=== PATIENT | female | born 1985 | race Caucasian/White ===

== ENCOUNTER 2016-12-21 10:58 | Inpatient (IN) | payer OTHER ==
--- NOTE | ~2016-12-21 | PN ---
Unit #: [id number] #: [id number] Patient: GLEN NICE [id number] [facility] [address] [place] [address] [id number] MR#: [id number] NAME: GLEN NICE ROOM: P173 Age: 31 Sex: F Admission Date: 12/21/2016 : 1985 Attending Physician: Branden Carver M.D. Admitting Physician: Branden Carver M.D. Primary Care Physician: Primary Care Physician Coral [facility] PROGRESS NOTES DATE OF SERVICE 12/23/2016 DISCUSSION Ms. Glen Nice is a 31-year-old female seen on 12/23/2016. The patient compliant, cooperative. Mood sad, dysphoric, withdrawn, isolative, guarded. The patient reported that she is still having withdrawal symptom, anxiety, nervousness, anxious, tremors, nausea, vomiting, mood lability. Complete Review of Systems: Unremarkable. MENTAL STATUS EXAMINATION General Appearance: The patient dressed casually. Oriented in time, place, and person. Mood and affect: Sad, dysphoric. Speech: Monotone. Thought process: Cascade. The patient denied any thoughts of harming self or others but guarded, withdrawn, isolative. Recent and remote memory: Poor. Insight and judgment: Poor. DIAGNOSIS Opioid use disorder, severe. ASSESSMENT/PLAN Advised to continue with current medication and therapeutic protocol. We will monitor response to medication and make further adjustment of medication. Dictated by... Cindy Canela/sterling TD: 12/24/2016 12:10 JOB #: [id number] Unit #: [id number] #: [id number] Patient: GLEN NICE [facility] PROGRESS NOTES X Branden Carvre MD PROGRESS NOTE
--- NOTE | ~2016-12-21 | PA ---
Unit #: [id number] #: [id number] Patient: GLEN NICE [id number] [place] [address] [id number] MR#: [id number] NAME: GLEN NICE ROOM: P177 Age: 31 Sex: F Admission Date: 12/21/2016 : 1985 Date of Assessment: Attending Physician: Branden Carver M.D. Admitting Physician: Branden Carver M.D. Primary Care Physician: Primary Care Physician No PSYCHIATRIC ASSESSMENT INFORMANTS The patient's reliability, fair; chart reliability, good. CHIEF COMPLAINT Suicidal ideation. HISTORY OF PRESENT ILLNESS Ms. Glen Nice is a 31-year-old female, seen on . The patient was admitted with the above-mentioned complaint. The patient has a history of previous treatment inpatient on 11/27/2016, inpatient for suicide attempt. The patient referred from [facility] due to the patient overdosed on medication in an attempt to . The patient reported mother 2 years ago and she is still grieving the loss of her mother. The patient believes that no one loves her, feeling of hopelessness and worthlessness. She broke up with her boyfriend recently. The patient lost 2 children about 18 months ago due to her addiction to opioids. The patient currently in [facility]. The patient tried to commit suicide 3 weeks ago by cutting her wrist. The patient placed in inpatient facility recently. The patient reported feeling hopeless, worthless, sad, and depressed. Needing inpatient admission at this time for psychiatric stabilization. PAST PSYCHIATRIC HISTORY Remarkable for history of inpatient treatment as mentioned above on 11/27/2016. FAMILY HISTORY/SOCIAL HISTORY The patient has a poor support system from family. Family psychiatric illness is remarkable for history of substance abuse in mother and father. No known history of any abuse. MEDICAL HISTORY Remarkable for history of hepatitis C. Musculoskeletal; muscle strength and tone, no atrophy or abnormal movement. Gait normal. MEDICATION HISTORY None. ALLERGIES No known drug allergies. SUBSTANCE ABUSE HISTORY The patient reported alcohol use, age of onset 18; marijuana, age of onset Unit #: [id number] #: [id number] Patient: GLEN NICE 20; opioid, age of onset 26; amphetamine, age of onset 29. The patient reported history of IV drug use. No history of any blackout, but history of hepatitis C. Currently reporting depressed mood, poor appetite, sleep problem, diarrhea, muscle cramp, abdominal cramping, hot and cold sweats. REVIEW OF SYSTEMS HEENT: Eyes, clear. Ears, nose, mouth, and throat; clear. CARDIOVASCULAR: Unremarkable. RESPIRATORY: Unremarkable. GI: Unremarkable. : Unremarkable. SKIN: Unremarkable. LYMPH NODE: Unremarkable. NEUROLOGIC: Unremarkable. ENDOCRINE: Unremarkable. HEMATOLOGIC: Unremarkable. ALLERGIC/IMMUNOLOGIC: Unremarkable. MUSCULOSKELETAL: Muscle strength and tone, no atrophy or abnormal movement. Gait normal except as mentioned above. MENTAL STATUS EXAMINATION CONSTITUTIONAL: Measurement of vital signs; temperature 98.0, pulse 86, respirations 20, blood pressure 128/78. Height 5 feet 5 inches, weight 125 pounds. GENERAL APPEARANCE: The patient dressed casually. The patient did not show any facial deformity. MUSCULOSKELETAL: Please see above. PSYCHIATRIC EXAMINATION Description of speech; regular rate, normal volume, normal articulation, coherent, spontaneous. Description of thought process, goal directed. Description of association, intact. Description of abnormal psychotic thinking; the patient denied any hallucination or delusions, but depression and suicidal ideation, denied any plan, substance abuse. Description of patient's judgment; concerning everyday activity, poor. Social situation, poor. Concerning psychiatric condition, poor. Complete mental status examination; oriented in time, place, and person. Recent and remote memory, fair. Attention span and concentration, fair. Language, able to name object and repeat phrases. Fund of knowledge, aware of current event, passive vocabulary intact. Mood and affect, sad and dysphoric. Insight and judgment, fair to poor. ASSETS AND LIABILITIES Assets; the patient is articulate, able to take care of her ADL. Liability; history of substance abuse. ADMITTING DIAGNOSES Psychiatric: 1. Major depressive disorder, recurrent, severe, F33.2. 2. Anxiety disorder, not otherwise specified, F41.9. 3. Opioid use disorder, mild, F11.10. Secondary diagnosis: Deferred. Medical diagnosis: Hepatitis C. Stressors: Psychosocial stressors. Unit #: [id number] #: [id number] Patient: GLEN NICE PSYCHIATRIC PLAN AND TREATMENT GOAL 1. Advised to admit the patient on the inpatient unit. Provide safe, supportive, and structured environment. 2. Ordered labs; CBC, CMP, UA, and UDS. 3. The patient to attend group therapy, individual therapy, medication management. Treatment goal to attain euthymic mood, gain insight into her problem, and learn coping skills. The patient was started on detox protocol, detox monitoring. Advised Desyrel 50 mg at bedtime for sleep, Celexa 20 mg at bedtime for depression, Vistaril 25 mg t.i.d. for anxiety. DISCHARGE PLAN Plan to stabilize the patient and consider followup in outpatient program. ESTIMATED LENGTH OF STAY 5 days. Dictated by... Cindy Canela/shiva TD: 12/23/2016 08:05 JOB #: [id number] PSYCHIATRIC ASSESSMENT X Branden Carver MD X PSYCHIATRIC ASSESSMENT
--- NOTE | ~2016-12-21 | PN ---
Unit #: [id number] #: [id number] Patient: GLEN NICE [id number] [facility] [address] [place] [address] [id number] MR#: [id number] NAME: GLEN NICE ROOM: P173 Age: 31 Sex: F Admission Date: 12/21/2016 : 1985 Attending Physician: Branden Carver M.D. Admitting Physician: Branden Carver M.D. Primary Care Physician: Primary Care Physician No [facility] PROGRESS NOTES DATE 12/24/2016 DISCUSSION Ms. Glen Nice is a 31-year-old female seen on 12/24/2016. Patient interviewed. Chart reviewed. Obtained information from nursing staff. Patient was compliant, cooperative. Mood was sad, dysphoric, anxious. Patient was able to maintain safe behavior, seclusive, isolative. Complete review of system unremarkable. MENTAL STATUS EXAMINATION General appearance, patient dressed casually. Attention span, concentration fair. Oriented in place and person. Mood and affect was labile. Speech regular rate. Thought process goal-directed. Patient denied any thoughts of harming self or others or any psychotic symptoms. Recent and remote memory poor. Insight and judgement poor. Vital signs 98.5, 55, 86/55. DIAGNOSIS Opiate use disorder, severe. ASSESSMENT/PLAN Advised to continue with current medication and therapeutic protocol. Will monitor response to medication and make further adjustment of medication. Dictated by... Cindy Canela/hamlet TD: 12/25/2016 17:34 JOB #: [id number] Unit #: [id number] #: [id number] Patient: GLEN NICE [facility] PROGRESS NOTES X Branden Carver MD PROGRESS NOTE
--- NOTE | ~2016-12-21 | PN ---
Unit #: [id number] #: [id number] Patient: GLEN MC [id number] [facility] [address] [place] [address] [id number] I MR#: [id number] NAME: GLEN MC ROOM: 77 Age: 31 Sex: F Admission Date: 12/21/2016 : 1985 Attending Physician: Branden Carver M.D. Admitting Physician: Branden Carver M.D. Primary Care Physician: Primary Care Physician Coral [facility] PROGRESS NOTES DATE OF SERVICE: 12/22/2016 DISCUSSION Ms. Glen Mc is a 31-year-old female, seen on 12/22/2016. The patient interviewed, chart reviewed, and obtained information from nursing staff. The patient was compliant and cooperative. Mood was sad, dysphoric, withdrawn, isolative, guarded, still having symptoms of depression and anxiety. Complete review of systems unremarkable. MENTAL STATUS EXAMINATION General appearance, the patient dressed casually. Attention span and concentration, fair. Oriented in place and person. Mood and affect, sad and dysphoric. Speech, monotone. Thought process, concrete. The patient denied any thoughts of harming self or others or any psychotic symptom. Recent and remote memory, poor. Insight and judgment, poor. DIAGNOSIS Mood disorder, not otherwise specified. ASSESSMENT AND PLAN Advised to continue with Celexa, trazodone, and Vistaril combination. Labs showed test negative, thyroid function tests within normal range, RPR nonreactive. Dictated by... Cindy Canela/shiva TD: 12/22/2016 14:54 JOB #: [id number] [facility] PROGRESS NOTES X Branden Carver MD PROGRESS NOTE
--- NOTE | ~2016-12-21 | HP ---
Unit #: [id number] #: [id number] Patient: GLEN NICE [id number] [place] [address] [id number] MR#: [id number] NAME: GLEN NICE. ROOM: P177 Age: 31 Sex: F Admission Date: 12/21/2016 : 1985 Attending Physician: Branden Carver M.D. Admitting Physician: Branden Carver M.D. Primary Care Physician: Primary Care Physician No HISTORY AND PHYSICAL HISTORY OF PRESENT ILLNESS Glen is a 31 year old admitted to [facility] with depression and after an overdose of trazodone and Seroquel. She was treated in the Emergency Room at [place] and when medically stable transferred to [facility]. PAST MEDICAL HISTORY 1. Long history of illicit drug use to include IV heroin. 2. Hepatitis C. PAST SURGICAL HISTORY Nothing reported. ALLERGIES Toradol (hives). SOCIAL HISTORY She denies cigarettes and alcohol. Admits to a long history of opioid abuse to include IV heroin. FAMILY HISTORY Medically noncontributory. REVIEW OF SYSTEMS CONSTITUTIONAL: No fever or chills. HEENT: Denies any sore throat, ear pain or runny nose. CARDIOVASCULAR: Denies chest pain, irregular heart rhythm or palpitations. CHEST: Denies shortness of breath or cough. No hemoptysis. GASTROINTESTINAL: Denies nausea, vomiting, diarrhea or chronic constipation. ENDOCRINE: Denies history of increased thirst or urination. No recent significant weight loss or gain. GENITOURINARY: Denies dysuria, frequency, or hematuria. SKIN: Denies any rashes. HEMATOLOGIC: Denies history of increased bleeding or bruising. MUSCULOSKELETAL: Denies any hot, swollen joints. No generalized muscle pain. NEUROLOGIC: Denies problems with vision or speech. No frequent, severe headaches. No numbness, tingling or weakness in any extremities. Denies loss of bladder or bowel control. CURRENT MEDICATIONS Detox protocol Unit #: [id number] #: [id number] Patient: GLEN NICE PHYSICAL EXAMINATION GENERAL: Alert, well-nourished, in no apparent distress. VITAL SIGNS: Blood pressure 100/60, heart rate 80, respirations 16, temperature 98.6. WEIGHT: 125 pounds. HEIGHT: 5'5". SKIN: Warm and dry without rash or lesion. HEENT: Normocephalic. TMs not viewed. Oral and nasal passages clear. Conjunctivae clear. Pupils equal, round and reactive to light and accommodation. Extraocular movements intact. NECK: Supple without lymphadenopathy or thyromegaly. HEART: Regular rate and rhythm without murmur. LUNGS: Clear. ABDOMEN: Soft, nontender. : Not done. EXTREMITIES: No evidence of cyanosis, clubbing or edema. Moves all extremities without focal deficit. NEUROLOGICAL: Grossly within normal limits. Cranial Nerves: II: Visual wiley are intact. III, IV AND : Extraocular movements are intact. Pupils are equal, round and reactive to light. V: Facial sensation is grossly normal. VII: Facial movements and expression are normal. VIII: Auditory acuity grossly intact. IX, X: Uvula is midline. Phonation is normal. XI: Patient shrugs shoulders and turns head normally. XII: Tongue protrudes in the midline. Sensory and Motor Function: Sensory and motor sensation is grossly normal. Motor: moves all extremities well. Coordination: Gait is normal. Deep Tendon Reflexes: Intact. IMPRESSION Psychiatric admission RECOMMENDATIONS PSYCHIATRIC: Per psychiatrist. MEDICAL: I see no contraindications to participating in facility's activities. MEDICAL PROGNOSIS Good. MEDICAL CONDITION Stable. Dictated by... Gin Mason P.A.-C. for Cindy Najera/sandra TD: 12/22/2016 04:09 JOB #: [id number] Unit #: [id number] #: [id number] Patient: GLEN NICE HISTORY AND PHYSICAL X Gin Mason HISTORY AND PHYSICAL
--- NOTE | ~2016-12-21 | DS ---
Unit #: [id number] #: [id number] Patient: GLEN NICE [id number] [place] [address] [id number] I MR#: [id number] NAME: GLEN NICE ROOM: 73 Age: 31 Sex: F Admission Date: 12/21/2016 : 1985 Discharge Date: 12/25/2016 Attending Physician: Branden Carver M.D. Primary Care Physician: Primary Care Physician No DISCHARGE SUMMARY REASON FOR ADMISSION Opioid abuse, Suboxone abuse, grief and loss. DIAGNOSTIC STUDIES LABORATORY RESULTS: Unremarkable. HOSPITAL COURSE The patient was admitted to inpatient unit on 12/21/2016 and discharged on 12/25/2016. The patient was treated on the inpatient unit with group therapy, individual therapy, medication management, and detox monitoring, detox protocol. The patient responded well with the above modalities of treatment. Subsequently, the patient was discharged with a plan to follow up in outpatient clinic. DISCHARGE MEDICATIONS Vistaril 25 mg t.i.d., Celexa 20 mg daily, Desyrel 50 mg at bedtime. DISCHARGE DIAGNOSES Psychiatric: 1. Major depressive disorder, recurrent, severe, F33.2. 2. Anxiety disorder, not otherwise specified, F41.9. 3. Opioid use disorder, mild, F11.20. Secondary diagnosis: Deferred. Medical diagnosis: Heaptitis C. Stressors: Psychosocial stressors. DISCHARGE INSTRUCTIONS The patient to follow up in outpatient clinic as per social and political studies professor. CONDITION ON DISCHARGE The patient was pleasant and cooperative. Denied any psychotic symptom or any suicidal ideation. PROGNOSIS Guarded. DIET AND ACTIVITY As tolerated. Dictated by... Unit #: [id number] #: [id number] Patient: GLEN NICE Cindy Canela/karenl TD: 12/26/2016 05:41 JOB #: [id number] DISCHARGE SUMMARY X Branden Carver MD X DISCHARGE SUMMARY
[2016-12-22 10:05] LABS: THYROID STIMULATING HORMONE 0.43 uIU/ml (0.34-5.60)
[2016-12-22 10:12] LABS: FREE THYROXIN (T4) 0.88 ng/dL (0.58-1.64)
[2016-12-23 12:44] LABS: URINE APPEARANCE CLOUDY; URINE BILIRUBIN NEG (NEG); URINE BLOOD NEG (NEG); URINE COLOR YELLOW; URINE GLUCOSE NEG (NEG); URINE KETONE NEG (NEG); URINE LEUKOCYTE ESTERASE 1+ (NEG); URINE NITRATE POS (NEG); URINE PH 5.5 (5-8); URINE PROTEIN NEG (NEG); URINE SPECIFIC GRAVITY 1.007 (1.003-1.035); URINE UROBILINOGEN 0.2 MG/DL (NEG)
[2016-12-23 13:14] LABS: AMPHETAMINE NEG (NEG); BARBITURATES NEG (NEG); BENZODIAZEPINES NEG (NEG); COCAINE NEG (NEG); MARIJUANA NEG (NEG); OPIATES NEG (NEG); TRICYCLIC ANTIDEPRESSANTS POS (NEG); U METHADONE NEG (NEG)
[2016-12-23 13:29] LABS: URBCS1 AUWI 0-2 /[HPF] (0-2)
[2016-12-23 13:30] LABS: URINE BACTERIA AUWI 3+ (NEGATIVE); URINE SQUAMOUS EPITHELIAL CELL FEW /[HPF]
== END 2016-12-25 09:50 | disposition home or self-care (01) | DRG 885 ==
LOC: P1E 10:58 → POF 12-22 12:44 → P1E 12-22 12:47
PROVIDERS: Psychiatry & Neurology Psychiatry
PROC: HZ2ZZZZ Detoxification Services for Substance Abuse Treatment (ICD-10-PCS; principal; 2016-12-21)
DX: F33.2 Major depressive disorder, recurrent severe without psychotic features (principal); F11.10 Opioid abuse, uncomplicated; F41.9 Anxiety disorder, unspecified; B19.20 Unspecified viral hepatitis C without hepatic coma
CPT/HCPCS: 80307; 81003; 84439; 84443; 84703; 86592